=== PATIENT | male | born 1975 | race Caucasian/White ===

== ENCOUNTER 2018-07-17 16:16 | Emergency (ER) | payer OTHER ==
[2018-07-17 16:16] VITALS: BMI 34.0
[2018-07-17 16:34] VITALS: RESP 20; TEMP 97.5
--- NOTE | 2018-07-17 17:31 | C.PDOC ---
History Of Present Illness 42 year old male presents to the ED complaining of nasal congestion, burning and tearing from right eye, headache, and right ear ache for 3 days. Denies any fever, chills, sore throat, cough, shortness of breath, n/v/d. Denies taking any medications for the symptoms. Time Seen by Provider: 07/17/18 16:31 Chief Complaint (Nursing): Headache History Per: Patient History/Exam Limitations: no limitations Onset/Duration Of Symptoms: Days (3) Current Symptoms Are (Timing): Still Present Quality: "Pain" Preceeding Symptoms: None Associated Symptoms: denies: Nausea, Vomiting Past Medical History Reviewed: Historical Data, Nursing Documentation, Vital Signs Vital Signs: Last Vital Signs Temp 97.5 F L 07/17/18 16:19 Pulse 72 07/17/18 16:19 Resp 20 07/17/18 16:19 BP 125/82 07/17/18 16:19 Pulse Ox 97 07/17/18 16:19 - Medical History PMH: No Chronic Diseases Other Surgeries: hx of surgeries Family History: States: No Known Family Hx - Social History Hx Tobacco Use: No Hx Alcohol Use: Yes Hx Substance Use: No - Immunization History Hx Tetanus Toxoid Vaccination: No Hx Influenza Vaccination: No Hx Pneumococcal Vaccination: No Review Of Systems Except As Marked, All Systems Reviewed And Found Negative. Constitutional: Negative for: Fever, Chills Eyes: Positive for: Other (burning and tearing from right eye ) ENT: Positive for: Ear Pain (right), Nose Congestion. Negative for: Throat Pain Respiratory: Negative for: Cough, Shortness of Breath Gastrointestinal: Negative for: Nausea, Vomiting, Diarrhea Neurological: Positive for: Headache Physical Exam - Physical Exam Appears: Non-toxic Skin: Warm, Dry, No Rash Head: Normacephalic Eye(s): right: Other (conjunctival erythema), left: Normal Inspection Ear(s): Left: Normal, Right: TM Erythema Nose: Discharge (clear) Oral Mucosa: Moist Tongue: Normal Appearing Lips: Normal Appearing Teeth: Normal Dentition Gingiva: Normal Appearing Throat: Normal, No Erythema, No Exudate Neck: Supple Chest: Symmetrical Cardiovascular: Rhythm Regular Respiratory: Normal Breath Sounds, No Rales, No Rhonchi, No Wheezing Extremity: Bilateral: Atraumatic, Normal Color And Temperature, Normal ROM Neurological/Psych: Oriented x3, Normal Speech, Other (neuro intact) Gait: Steady ED Course And Treatment O2 Sat by Pulse Oximetry: 97 (RA) Pulse Ox Interpretation: Normal Progress Note: Patient treated wtih Amoxicillin 500mg PO and Ibuprofen 600mg PO. On re-examination, patient is resting comfortably in no acute distress. Patient reports improvement of symptoms. Patient feels comfortable going home and will be discharged. Patient given follow up instructions. Instructed to return to ER if symptoms worsen or new symptoms arise. Disposition - Disposition Disposition: HOME/ ROUTINE Disposition Time: 17:32 Condition: GOOD Additional Instructions: Follow up with your PMD/clinic within 1-2 days. Return to ED if feel worse. Prescriptions: Amoxicillin [Amoxil 500 mg Cap] 500 mg PO Q8 #30 cap Fluticasone Propionate [Flonase] 1 spr NS BID #1 spr Ibuprofen [Motrin Tab] 600 mg PO Q8 #30 tab Tobramycin 0.3% [Tobrex 0.3% Ophth Soln] 1 drop OD Q2 #1 bottle Instructions: Ear Infections (Otitis Media), Conjunctivitis (Pinkeye) (DC), Cough, Runny Nose, and the Common Cold (DC) Forms: [employer] (Mohawk) - Clinical Impression Clinical Impression: URI (upper respiratory infection), Otitis media - PA / OFFICE AUTOMATION CLERK / Resident Statement MD/DO has reviewed & agrees with the documentation as recorded. - Scribe Statement The provider has reviewed the documentation as recorded by the Scribe Carina Manrique All medical record entries made by the Faridaibbarbara were at my direction and personally dictated by me. I have reviewed the chart and agree that the record accurately reflects my personal performance of the history, physical exam, medical decision making, and the department course for this patient. I have also personally directed, reviewed, and agree with the discharge instructions and disposition.
[2018-07-17 17:51] VITALS: BP 121/79; PULSE 71
[2018-07-17 18:32] VITALS: O2SAT 97
== END 2018-07-17 17:51 | disposition home or self-care (01) ==
LOC: C.ER 16:16
DX: J06.9 Acute upper respiratory infection, unspecified (principal); H66.91 Otitis media, unspecified, right ear

== ENCOUNTER 2018-07-21 11:55 | Emergency (ER) | payer SELFPAY ==
[2018-07-21 11:55] VITALS: BMI 34.0
[2018-07-21 12:05] VITALS: BP 129/79; PULSE 76; TEMP 97.9; O2SAT 98
--- NOTE | 2018-07-21 12:05 | C.PDOC ---
History Of Present Illness CC: Skin changes Cesar Trestleman: Kumar, [id number] HPI: Patient is a 42 year old male with no known past medical history, who presents to the ED with complaints of skin changes that started 3 months ago. Patient describes his skin changes as white patches that is sometimes itchy that appeared on the right side of his face (1 spot) and chest (2 spots). Patient states that he has been using an unknown cream with no relief. Patient has not seen any physician for this complaint. Chief Complaint (Nursing): Abnormal Skin Integrity History Per: Patient History/Exam Limitations: no limitations Onset/Duration Of Symptoms: Days, Persistent Current Symptoms Are (Timing): Still Present Location Of Injury: Right: Face, Anterior: Chest Quality Of Symptoms: denies: Painful, Itching, Swollen, Draining Severity: None Pain Scale Rating Of: 0 Recent travel outside of the [place]: No Additional History Per: Patient Past Medical History Vital Signs: Last Vital Signs Temp 97.9 F 07/21/18 11:59 Pulse 76 07/21/18 11:59 Resp 17 07/21/18 11:59 BP 129/79 07/21/18 11:59 Pulse Ox 98 07/21/18 11:59 Family History: States: Unknown Family Hx - Social History Hx Tobacco Use: No Hx Alcohol Use: Yes Hx Substance Use: No - Immunization History Hx Tetanus Toxoid Vaccination: No Hx Influenza Vaccination: No Hx Pneumococcal Vaccination: No Review Of Systems Constitutional: Negative for: Fever, Chills, Weakness, Malaise Eyes: Negative for: Pain, Vision Change ENT: Negative for: Ear Pain, Ear Discharge Cardiovascular: Negative for: Chest Pain, Palpitations, Orthopnea, Edema, Light Headedness Respiratory: Negative for: Cough, Shortness of Breath, Hemoptysis, SOB with Excertion, Wheezing Gastrointestinal: Negative for: Nausea, Vomiting, Abdominal Pain, Diarrhea, Constipation, Melena, Hematochezia, Hematemesis Genitourinary: Negative for: Dysuria, Hematuria Musculoskeletal: Negative for: Arm Pain Skin: Positive for: Rash Neurological: Negative for: Weakness, Numbness, Incoordination Physical Exam - Physical Exam Appears: Well, Non-toxic, No Acute Distress Skin: Normal Color, Warm, Rash (1 spot on his right side of his face and 2 spots on his anterior chest ( white patches discoloration)) Head: Atraumatic, Normacephalic Eye(s): bilateral: Normal Inspection Ear(s): Bilateral: Normal Nose: Normal Tongue: Normal Appearing Lips: Normal Appearing Cardiovascular: Rhythm Regular Respiratory: Normal Breath Sounds, No Decreased Breath Sounds, No Accessory Muscle Use, No Rales, No Rhonchi, No Stridor, No Wheezing Gastrointestinal/Abdominal: Normal Exam, Bowel Sounds, Soft, No Tenderness Neurological/Psych: Oriented x3, Normal Speech ED Course And Treatment O2 Sat by Pulse Oximetry: 98 Disposition Discussed With : Gertrude Bains - Disposition Referrals: [facility] [Provider Group] (Please follow up in 1-3 days ) Disposition: HOME/ ROUTINE Disposition Time: 12:16 Condition: FAIR Additional Instructions: Please discharge patient home Please apply pea-size clotrimazole 1% cream to affected area daily for 10-20 days Please use selsun blue body wash for 10-20 days Please follow up with [facility] in order to establish primary care in 1-3 days Please return to the hospital if symptoms worsens Please take care Prescriptions: Clotrimazole 1% Cream [Lotrimin 1%] 1 gm TP DAILY 10 Days #2 tube Instructions: Tinea Versicolor Forms: [employer] (Swedish), Gen Discharge Inst Mexican Print Language: FIJIAN - Clinical Impression Clinical Impression: Tinea versicolor, Fungal infection of skin
[2018-07-21 12:36] VITALS: RESP 18
== END 2018-07-21 12:36 | disposition home or self-care (01) ==
LOC: C.ER 11:55
DX: B36.0 Pityriasis versicolor (principal)